=== PATIENT | female | born 1950 | race Caucasian/White ===

== ENCOUNTER → 2017-03-09 | Outpatient (REF) | payer OTHER | LOC: M LAB REF 16:47 | PROVIDERS: ATTEND Surgery | DX: C44.712 Basal cell carcinoma of skin of right lower limb, including hip (principal) ==

== ENCOUNTER → 2017-04-12 | Outpatient (REF) | payer OTHER | LOC: M LAB REF 16:29 | PROVIDERS: ATTEND Physician Assistant | DX: S81.801A Unspecified open wound, right lower leg, initial encounter (principal); X58.XXXA Exposure to other specified factors, initial encounter; Y92.89 Other specified places as the place of occurrence of the external cause; Y93.89 Activity, other specified; Y99.8 Other external cause status ==

== ENCOUNTER → 2018-06-02 | Outpatient (REF) | payer OTHER | LOC: M LAB REF 12:30 | DX: D23.11 Other benign neoplasm of skin of right eyelid, including canthus (principal) ==

== ENCOUNTER 2018-07-17 11:50 | Day surgery (SDC) | payer OTHER ==
[2018-07-17] MEDS: NS 1,000 ML IV (12:00)
[2018-07-17] MEDS ORDERED: PROPOFOL 200 MG/20 ML VIAL As Ordered ×2 (13:10→14:19)
[2018-07-17] MEDS ORDERED: LIDOCAINE 2% INJ 100 MG/5 ML SDV (FOR ANES.) As Ordered (13:10)
== END 2018-07-17 14:58 | disposition home or self-care (01) ==
LOC: M OPP 11:50
DX: R10.13 Epigastric pain (principal); R12 Heartburn; K22.8 Other specified diseases of esophagus; K29.70 Gastritis, unspecified, without bleeding; I10 Essential (primary) hypertension; E78.5 Hyperlipidemia, unspecified; E11.9 Type 2 diabetes mellitus without complications; K44.9 Diaphragmatic hernia without obstruction or gangrene; K21.9 Gastro-esophageal reflux disease without esophagitis; E55.9 Vitamin D deficiency, unspecified; Z78.0 Asymptomatic menopausal state; Z85.828 Personal history of other malignant neoplasm of skin; Z79.899 Other long term (current) drug therapy; Z79.84 Long term (current) use of oral hypoglycemic drugs
CPT/HCPCS: 43239

== ENCOUNTER → 2018-09-01 | Outpatient (REF) | payer OTHER | LOC: M LAB REF 15:17 | DX: D23.10 Other benign neoplasm of skin of unspecified eyelid, including canthus (principal) ==

== ENCOUNTER 2019-11-22 11:15 | Day surgery (SDC) | payer OTHER ==
[~2019-11-22] VITALS: Ht 165.1 cm; Wt 73.9 kg
[~2019-11-22 11:15] MED LIST: ALLE180T33 PO; CRAN400C PO; FENO145T7 PO; LINZ145C PO; LISI-542 PO; MAGN1TAB26 PO; METF-839 PO; MM S100C PO; NS 1,000 ML IV ONE; PANT40TA3 PO; VERA180T3 PO; VITA100066 PO; VITA100067 PO
[2019-11-22] MEDS ORDERED: propofoL 200 MG/20 ML VIAL As Ordered ONE (12:10)
[2019-11-22] MEDS ORDERED: LIDOCAINE 2% INJ 100 MG/5 ML SDV (FOR ANES.) As Ordered ONE (12:10)
--- NOTE | 2019-11-22 12:27 | ROOR ---
Patient Name: Tabitha Linton Procedure Date: 11/22/2019 12:10 PM Date of : 1950 Age: 69 Room: [facility] Gender: Female Note Status: Finalized Procedure: Colonoscopy Indications: High risk colon cancer surveillance: Personal history of colonic polyps Providers: Rashel Sales Jr, MD Referring MD: PURNIMA العراقي Requesting Provider: Medicines: Propofol per Anesthesia Complications: No immediate complications. Procedure: Pre-Anesthesia Assessment: - Prior to the procedure, a History and Physical was performed, and patient medications and allergies were reviewed. The patient is competent. The risks and benefits of the procedure and the sedation options and risks were discussed with the patient. All questions were answered and informed consent was obtained. Patient identification and proposed procedure were verified by the physician and the nurse in the pre-procedure area and in the procedure room. Mental Status Examination: alert and oriented. Airway Examination: normal oropharyngeal airway and neck mobility. Respiratory Examination: clear to auscultation. CV Examination: normal. ASA Grade Assessment: II - A patient with mild systemic disease. After reviewing the risks and benefits, the patient was deemed in satisfactory condition to undergo the procedure. The anesthesia plan was to use moderate sedation / analgesia (conscious sedation). Immediately prior to administration of medications, the patient was re-assessed for adequacy to receive sedatives. The heart rate, respiratory rate, oxygen saturations, blood pressure, adequacy of pulmonary ventilation, and response to care were monitored throughout the procedure. The physical status of the patient was re-assessed after the procedure. The Colonoscope was introduced through the anus and advanced to the cecum, identified by appendiceal orifice and ileocecal valve. The colonoscopy was performed without difficulty. The patient tolerated the procedure well. The quality of the bowel preparation was adequate. Findings: Multiple small and large-mouthed diverticula were found in the recto-sigmoid colon, sigmoid colon, descending colon, transverse colon and ascending colon. The rectum, cecum, appendiceal orifice and ileocecal valve appeared normal. Impression: - Diverticulosis in the recto-sigmoid colon, in the sigmoid colon, in the descending colon, in the transverse colon and in the ascending colon. - The rectum, cecum, appendiceal orifice and ileocecal valve are normal. - No specimens collected. Recommendation: - Discharge patient to home (ambulatory). - Repeat colonoscopy in 5 years for surveillance. Rashel Sales MD Rashel Sales Jr, MD 11/22/2019 12:27:26 PM Electronically signed by Rashel Sales Jr, MD Number of Addenda: 0 Note Initiated On: 11/22/2019 12:10 PM Estimated Blood Loss: Estimated blood loss: none.
[2019-11-22 12:45] VITALS: BP 150/67
== END 2019-11-22 12:55 | disposition home or self-care (01) ==
LOC: M OPP 11:15
PROVIDERS: ATTEND Surgery
DX: Z12.11 Encounter for screening for malignant neoplasm of colon (principal); Z86.010 Personal history of colon polyps; K57.30 Diverticulosis of large intestine without perforation or abscess without bleeding; Z79.899 Other long term (current) drug therapy; Z79.84 Long term (current) use of oral hypoglycemic drugs

== ENCOUNTER → 2020-10-09 | Outpatient (CLI) | payer OTHER ==
[~2020-10-09] MED LIST changes: +D31000TA2 PO; -NS 1,000 ML IV ONE; +PANT40TA29 PO; -PANT40TA3 PO
== END ==
LOC: M LABSMTC 11:07
PROVIDERS: ATTEND Anesthesiology
DX: Z01.812 Encounter for preprocedural laboratory examination (principal); Z20.828 Contact with and (suspected) exposure to other viral communicable diseases

== ENCOUNTER 2020-10-14 10:12 | Day surgery (SDC) | payer OTHER ==
[~2020-10-14] VITALS: Ht 165.1 cm; Wt 71.4 kg
[~2020-10-14 10:12] MED LIST changes: +LIDOCAINE 1% MDV 20ML VIAL SQ PRN; +LR 1,000 ML IV ONE; +ceFAZolin SOD 2 GM in IV 1 EA IV ONE
[2020-10-14] MEDS ORDERED: KETOROLAC 60MG 2ML VIAL As Ordered ONE ×2 (11:34→13:04)
[2020-10-14] MEDS ORDERED: SUGAMMADEX SODIUM 500 MG/5 ML VIAL (BRIDION) As Ordered ONE ×2 (11:34→13:04)
[2020-10-14] MEDS ORDERED: propofoL 200 MG/20 ML VIAL As Ordered ONE (11:34)
[2020-10-14] MEDS ORDERED: ONDANSETRON 4MG/2ML VIAL As Ordered ONE (11:36)
[2020-10-14] MEDS ORDERED: fentaNYL 100 MCG/2 ML INJECTION (J3010) As Ordered ONE ×2 (11:36→13:06)
[2020-10-14] MEDS ORDERED: dexameTHASONE 4 MG/ML 1ML VIAL (J1100 PER 1MG) As Ordered ONE (11:36)
[2020-10-14] MEDS ORDERED: LIDOCAINE 2% 100MG/5ML SDV (FOR ANES.) As Ordered ONE (11:36)
[2020-10-14] MEDS ORDERED: MIDAZOLAM INJ 2MG/2ML VIAL (J2250 PER 1MG) As Ordered ONE (11:36)
[2020-10-14] MEDS ORDERED: ROCURONIUM BROMIDE 50 MG/5 ML VIAL As Ordered ONE (11:36)
[2020-10-14] MEDS ORDERED: BUPIVACAINE HCL 0.25% 30ML VIAL As Ordered ONE (12:23)
[2020-10-14] MEDS ORDERED: LIDOCAINE W/EPINEPHRINE 1% 20ML VIAL As Ordered ONE (12:25)
[2020-10-14] MEDS ORDERED: GLUCAGON INJ 1MG VIAL As Ordered ONE (12:25)
[2020-10-14] MEDS ORDERED: ACETAMINOPHEN 1000MG 100ML IV BTL (OFIRMEV) (J0131 PER 10MG) As Ordered ONE (13:00)
[2020-10-14] MEDS ORDERED: oxyCODONE 5MG TAB PO PRN (14:15)
[2020-10-14] MEDS ORDERED: HYDROMORPHONE HCL 0.5 MG/ 0.5 ML SYRINGE (J1170 PER 1) IV PRN (14:15)
[2020-10-14] MEDS ORDERED: ONDANSETRON 4MG/2ML VIAL IV PRN (14:15)
[2020-10-14] MEDS ORDERED: fentaNYL 100 MCG/2 ML INJECTION (J3010) IV PRN (14:15)
[2020-10-14] MEDS ORDERED: LR 1,000 ML IV SCH (14:15)
[2020-10-14] MEDS ORDERED: traMADol 50 MG TAB PO PRN (14:15)
[2020-10-14] MEDS ORDERED: NS 1,000 ML IV SCH (14:15)
--- NOTE | 2020-10-14 15:40 | RO ---
OPERATIVE NOTE DATE OF OPERATION: 10/14/2020 PREOPERATIVE DIAGNOSIS: History of acute cholecystitis. POSTOPERATIVE DIAGNOSIS: History of acute cholecystitis. PROCEDURE: Laparoscopic cholecystectomy. SURGEON: Rashel Sales MD ANESTHESIA: General endotracheal anesthesia. EBL: Minimal. FLUIDS: Crystalloid. BRIEF PROCEDURE SUMMARY: The patient was brought to the operating room, was given general anesthesia. After adequate anesthesia the patient was prepped and draped in sterile fashion. Supraumbilical incision was made with skin knife; blunt dissection was carried down to fascia. Veress needle was placed into the abdominal cavity and insufflated to 15 mm of pressure. Dilating 10 mm trocar was placed at the umbilicus under direct visualization an epigastric and two lateral trocars were placed. The gallbladder was grasped, retracted superiorly and there was a great deal of thickening in the gallbladder wall with some edema on gallbladder wall and eventually this was mobilized laterally along the peritoneum and then along the surface on the medial. Given the amount of some chronic fibrosis as well as acute fibrosis, this was a little bit more difficult in going slow but eventually we were able to create a nice window behind the neck of the gallbladder showing the cystic artery as well as cystic duct. The cystic artery was clipped proximally and distally and transected. The cystic duct was clipped proximally and distally and transected. The gallbladder was removed from the gallbladder bed, brought out through the umbilicus in an Endo Catch bag. #0 Vicryl was used to close the fascia at the umbilicus after the right upper quadrant was copiously irrigated until clear and all trocars were removed under direct visualization. 4-0 Vicryl was used to close all skin incisions. Steri-Strips and dry, sterile dressing were applied. The patient was awakened, extubated and brought to recovery room awake, alert and hemodynamically stable. Sponge and needle counts correct x2.
[2020-10-14 16:10] VITALS: BP 152/71
== END 2020-10-14 16:15 | disposition home or self-care (01) ==
LOC: M SDC 10:12
PROVIDERS: ATTEND Surgery
DX: K80.10 Calculus of gallbladder with chronic cholecystitis without obstruction (principal); I10 Essential (primary) hypertension; E78.00 Pure hypercholesterolemia, unspecified; E11.9 Type 2 diabetes mellitus without complications; K44.9 Diaphragmatic hernia without obstruction or gangrene; K58.9 Irritable bowel syndrome, unspecified; K21.9 Gastro-esophageal reflux disease without esophagitis; Z79.899 Other long term (current) drug therapy; Z85.828 Personal history of other malignant neoplasm of skin; Z87.891 Personal history of nicotine dependence; Z96.1 Presence of intraocular lens; Z98.41 Cataract extraction status, right eye; Z98.42 Cataract extraction status, left eye
CPT/HCPCS: 47562; 88304; J0131; J0690; J1100; J1885; J2250; J2405; J3010

== ENCOUNTER → 2022-12-13 | Outpatient (CLI) | payer OTHER, SELFPAY ==
[~2022-12-13] MED LIST changes: -D31000TA2 PO; -LIDOCAINE 1% MDV 20ML VIAL SQ PRN; -LISI-542 PO; +LISI5TAB11 PO; -LR 1,000 ML IV ONE; -VERA180T3 PO; +VERA180T42 PO; +VITA100093 PO; -ceFAZolin SOD 2 GM in IV 1 EA IV ONE
== END ==
LOC: M WHC 09:37
PROVIDERS: ATTEND Obstetrics & Gynecology
DX: Z12.31 Encounter for screening mammogram for malignant neoplasm of breast (principal)

== ENCOUNTER → 2023-04-12 | Outpatient (CLI) | payer OTHER, MEDICARE | LOC: M WHC 11:09 | PROVIDERS: ATTEND Physician Assistant | DX: Z78.0 Asymptomatic menopausal state (principal) ==

== ENCOUNTER → 2024-01-19 | Outpatient (CLI) | payer MEDICARE, OTHER | LOC: M WHC 13:54 | PROVIDERS: ATTEND Obstetrics & Gynecology | DX: Z12.31 Encounter for screening mammogram for malignant neoplasm of breast (principal) ==

== ENCOUNTER → 2025-01-25 | Outpatient (CLI) | payer OTHER, MEDICARE ==
[~2025-01-25] MED LIST changes: -CRAN400C PO; +CRANBERRY400 MG PO
== END ==
LOC: M WHC 10:14
PROVIDERS: ATTEND Obstetrics & Gynecology
DX: Z12.31 Encounter for screening mammogram for malignant neoplasm of breast (principal)

== ENCOUNTER → 2025-02-21 | Day surgery (SDC) | payer OTHER, MEDICARE ==
[~2025-02-21] VITALS: Ht 165.1 cm; Wt 69.9 kg
[~2025-02-21] MED LIST changes: +AMLO2.5T3 PO; +FAMO40TA3 PO; +LIDOCAINE 2% 100MG/5ML SDV (FOR ANES.) As Ordered ONE; +LINZ290C PO; +propofoL 200 MG/20 ML VIAL As Ordered ONE
[2025-02-21 09:29] VITALS: TEMP 97.5
[2025-02-21 09:45] VITALS: BP 125/62; O2SAT 98
== END | disposition home or self-care (01) ==
LOC: M OPP 08:21
PROVIDERS: ATTEND Surgery
DX: Z12.11 Encounter for screening for malignant neoplasm of colon (principal); K57.30 Diverticulosis of large intestine without perforation or abscess without bleeding; Z79.84 Long term (current) use of oral hypoglycemic drugs; Z79.899 Other long term (current) drug therapy